=== PATIENT | male | born 1975 | race Caucasian/White ===

== ENCOUNTER 2021-12-06 06:16 | Day surgery (SDC) | payer BC ==
[~2021-12-06] VITALS: Ht 170.2 cm; Wt 102.1 kg
[~2021-12-06 06:16] MED LIST: BUPROPION XL150 MG PO
[2021-12-06] MEDS ORDERED: TYLENOL EXTRA500 MG PO (06:38)
[2021-12-06] MEDS ORDERED: IBUPROFEN600 MG PO (06:38)
--- NOTE | 2021-12-06 08:31 | NUR ---
12/06/21 0831 MildredMary 0818-PATIENT ARRIVED TO PACU ON 3L NC RR EVEN. PATIENT AROUSES TO VERBAL STIMULI OPENING EYES DENIES PAIN OR NAUSEA. PATIENT ORIENTED TO PACU. IVF INFUSING. PATIENT DOZES BACK TO SLEEP. 0830-PATIENT SLEEPING RR EVEN 3L NC RR EVEN PLACED ON RA 98%. STOP BANG SCORE OF 4 PLAN TO SEND SLEEP APNEA HANDOUT HOME AND FORM TO .
--- NOTE | 2021-12-06 09:50 | OR ---
[facility] [address], [place] [address] Signed DATE OF OPERATION: 12/06/2021 SURGEON: Ash Kimble MD PREOPERATIVE DIAGNOSES: 1. Distal esophageal stricture. 2. Prior left thoracotomy age 2 for esophageal surgery. POSTOPERATIVE DIAGNOSES: 1. Mild to moderate diffuse gastritis. 2. Probable healed pyloric bulb/duodenal ulcer. 3. Question proximal antral gastric diverticulum versus healed ulcer. 4. A small hiatal hernia. 5. GE junction at 42 cm. 6. Distal esophageal stricture at 38 cm plus or minus linear ulcer. 7. 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 PROCEDURES: 1. EGD with CLOtest and biopsies of the pyloric bulb antrum, GE junction, and stricture. 2. 45 Cymraes Savory dilation. ESTIMATED BLOOD LOSS: Minimal. INDICATIONS: Leo is a 46-year-old gentleman who was asked to see me for distal esophageal dysphagia. He points to the lower 1/3rd of his sternum. He had esophageal surgery at the age of 2 in [place], [place]. There was a left thoracotomy incision. He certainly could have had esophageal atresia and/or hiatal hernia repaired. It could be that he has had a fundoplication as well. He said he has had distal esophageal dysphagia basically his whole life. At some point, someone told him he might need stretch. He said sometimes he has to vomit the food back up. He said trying to drink food on top of the food only makes it worse. In the office, we had reviewed this in detail. I gave him brochure on acid reflux and hiatal hernias. We had discussed the upper endoscopy with dilation in detail. He understands there is risk to the procedure including, but not limited to gas bloating, crampy abdominal pain, bleeding, perforation requiring surgery, and missed diagnosis. We also send him for a barium swallow in mid October 2021. I reviewed that with him today prior to the procedure. He does have a proximal posterior pharyngeal bar which narrows the lumen around 30% to 40%. However, he never complains of that and it does not delay the swallow during his barium test. His esophageal motility appears to Electronically Signed By: ASH KIMBLE MD 12/06/21 0950 PATIENT NAME: LEO STEWART OPERATIVE REPORT DATE OF : 71 REPORT #: [id number] PHYSICIAN: ASH KIMBLE MD PCP: TEODORA LI REPORT IS CONFIDENTIAL AND NOT TO BE RELEASED WITHOUT AUTHORIZATION [facility] [address], [place] [address] Signed be normal. He clearly has a small hiatal hernia. Of course just above that, in his distal esophagus it is narrowed with a decrease in the luminal diameter of around 60%. The stricture is about a cm in diameter cranial to caudal. There is some nodular indentation on the left side which may represent some scarring from his surgery and he did reflux during the Valsalva maneuvers. I had reviewed all this with Leo in detail. He had expressed understanding and wished to proceed with upper endoscopy and dilation. He understands he might need additional dilations in the future. PROCEDURE NOTE: Leo was taken into our endoscopy suite and placed in a supine semi-recumbent position. He was given a total of 8 mg of Versed and 100 mcg of fentanyl to cover the case. The posterior oropharynx was anesthetized with lidocaine spray. A bite block was utilized for the case. The adult gastroscope was introduced and advanced under direct visualization of the camera down to his stricture at 38 cm. Multiple pictures were taken for photodocumentation. Fortunately our gastroscope went through fairly readily and out into the stomach and into the duodenum itself. The duodenum was quite healthy. In the pyloric bulb, he may have had an ulcer on the side heal over. We took pictures of that and biopsy on the edge of that as well. He appears to have some mild diffuse erythematous changes in the stomach. We went ahead and took a biopsy of the antrum for CLOtest as well as pathologic review. It appears that the CLOtest may be changing color already. In his proximal antrum, he has indentation. It does not appear to be an actual gastric diverticulum. It is always possible it is a healed ulcer, but it seems unlikely. Not sure if that is a postsurgical change, maybe he had a gastrostomy tube at some point in the past. I will have to check his abdominal wall to see if he had a gastrostomy tube incision. It appears that his entire stomach is intact. I retroflexed the scope and he clearly has a small hiatal hernia with some of the cardia being drawn up into his hiatal hernia. I cannot see any evidence that he has a fundoplication. The scope was then withdrawn up through the area of the GE junction, which was compliant without stricture. He has mild disruption to his Z-line with some irritation in that area. We had taken a biopsy at the Z-line as well. The Z-line is about 42-43 cm from the incisors and as we brought the camera back up the esophagus of course we visualized his strictured area. He may have some Reilly's esophagus actually above the stricture. On the one side, there may have been a linear ulcer. He also appears to have some postsurgical changes off to that side as well. It is a little difficult to appreciate on the photographs. The middle and upper esophagus were unremarkable. After this, we passed a wire out into the stomach. We used our 45-Cymraes Savory dilator and we passed that over the wire and we felt the resistance right about 38-40 cm and we were able to pass that through the stricture up to about 55 cm. The wire and the dilator had been withdrawn. The bite block was replaced and the adult gastroscope was reintroduced. We can see what probably was a linear break in the mucosa on the stricture. Hemostasis was excellent. We decided not to dilate that any further today. We will await his biopsies and add Prilosec to his regimen. After this, he was taken into recovery room in stable Electronically Signed By: ASH KIMBLE MD 12/06/21 0950 PATIENT NAME: LEO STEWART OPERATIVE REPORT DATE OF : 71 REPORT #: [id number] PHYSICIAN: ASH KIMBLE MD PCP: TEODORA LI REPORT IS CONFIDENTIAL AND NOT TO BE RELEASED WITHOUT AUTHORIZATION [facility] [address], [place] [address] Signed condition. RECOMMENDATIONS: Leo will follow up in my office in 7 to 14 days to review his results. He will likely need additional dilations. We will write for Prilosec 20 mg p.o. daily at this point. The CLOtest is likely going to be positive. Ash Kimble MD ALB/JERSONL /[id number] cc: MD Teodora Perez PA Copies: ASH KIMBLE MD, LINDA PA ~ Electronically Signed By: ASH KIMBLE MD 12/06/21 0950 PATIENT NAME: LEO STEWART OPERATIVE REPORT DATE OF : 71 REPORT #: [id number] PHYSICIAN: ASH KIMBLE MD PCP: TEODORA LI REPORT IS CONFIDENTIAL AND NOT TO BE RELEASED WITHOUT AUTHORIZATION
--- NOTE | 2021-12-07 15:08 | PATH ---
[facility] [address], [place] [address] Signed SPECIMEN(S): A DUODENAL BULB BIOPSY SPECIMEN(S): B ANTRUM/PYLORUS BIOPSY SPECIMEN(S): C GE JUNCTION BIOPSY SPECIMEN(S): D DISTAL ESOPHAGEAL BIOPSY SPECIMEN SOURCE: A. DUODENAL BULB BIOPSY B. ANTRUM/PYLORUS BIOPSY C. GE JUNCTION BIOPSY D. DISTAL ESOPHAGEAL BIOPSY CLINICAL HISTORY: Esophagogastroduodenoscopy with possible dilation. Dysphagia. Postop: Distal esophageal stricture, small hiatal hernia, mild gastritis. FINAL PATHOLOGIC DIAGNOSIS: A. Duodenal bulb, biopsy: - Duodenal mucosa with gastric surface cell metaplasia and Petra's gland hyperplasia, consistent with peptic duodenitis. - Negative for increased intraepithelial lymphocytes. - Negative for dysplasia or malignancy. B. Stomach, antrum/pylorus, biopsy: - Antral mucosa with chronic, active gastritis. - Positive for Helicobacter organisms on HE stain. - Negative for dysplasia or malignancy. C. Gastroesophageal junction, biopsy: - Squamous mucosa with changes consistent with reflux esophagitis. - Negative for intestinal metaplasia, dysplasia or malignancy. D. Esophagus, distal, biopsy: - Squamous mucosa with intestinal metaplasia (see Comment). - Negative for dysplasia or malignancy. COMMENT: Regarding specimen D: The findings are compatible with Reilly's esophagus in the correct clinical setting. A PAS/D to evaluate for fungal organisms is pending and will be reported in an addendum. NAL:[id number]:[id number] MICROSCOPIC EXAMINATION: Histologic sections of all submitted blocks are examined by light microscopy. These findings, together with the gross examination, support the pathologic PATIENT NAME: LEO STEWART PATHOLOGY DATE OF : 71 REPORT #: [id number] PHYSICIAN: AHSAN HANDLEY PCP: CHRIS LI REPORT IS CONFIDENTIAL AND NOT TO BE RELEASED WITHOUT AUTHORIZATION [facility] [address], [place] [address] Signed diagnosis. GROSS DESCRIPTION: Four specimens are received in four containers, labeled "BE." A. The specimen, labeled "BE, 1," and designated on the requisition "duodenal bulb," is received in formalin and consists of one jo soft tissue fragment that measures 0.3 cm in greatest dimension. The specimen is entirely submitted in cassette (A1). B. The specimen, labeled "BE, 2," and designated on the requisition "antrum/pylorus," is received in formalin and consists of one jo soft tissue fragment that measures 0.3 cm in greatest dimension. The specimen is entirely submitted in cassette (B1). C. The specimen, labeled "BE, 3," and designated on the requisition "GE junction," is received in formalin and consists of one jo soft tissue fragment that measures 0.4 cm in greatest dimension. The specimen is entirely submitted in cassette (C1). D. The specimen, labeled "BE, 4," and designated on the requisition "distal esophagus," is received in formalin and consists of one jo soft tissue fragment that measures 0.3 cm in greatest dimension. The specimen is entirely submitted in cassette (D1). AT (under the direct supervision of a pathologist) The Gross Description was prepared using a voice recognition system. The report was reviewed for accuracy; however, sound-alike word errors, addition and/or deletions may occur. If there is any question about this report, please contact Client Services. PERFORMING LABORATORY: The technical component was performed by [facility], [address] [place] [id number] (Banquet Kitchen Supervisor: Cecilia Simpson MD; CLIA# [id number]). Professional interpretation was performed by [facility], [address] [facility] [place] [address] (CLIA# [id number]). Diagnostician: Rylie Landers MD Pathologist Electronically Signed 12/07/2021 Copies: PATIENT NAME: LEO STEWART PATHOLOGY DATE OF : 71 REPORT #: [id number] PHYSICIAN: AHSAN PATHOLOGY PCP: CHRIS LI REPORT IS CONFIDENTIAL AND NOT TO BE RELEASED WITHOUT AUTHORIZATION [facility] [address] [facility] [place], [place] [address] Signed ~ PATIENT NAME: LEO STEWART PATHOLOGY DATE OF : 71 REPORT #: [id number] PHYSICIAN: AHSAN HANDLEY PCP: CHRIS LI REPORT IS CONFIDENTIAL AND NOT TO BE RELEASED WITHOUT AUTHORIZATION
== END 2021-12-06 09:07 | disposition home or self-care (01) ==
LOC: DS 06:16 → OPS 06:16
PROVIDERS: ATTEND Colon & Rectal Surgery
PROC: 0DB78ZX Excision of Stomach, Pylorus, Via Natural or Artificial Opening Endoscopic, Diagnostic (ICD-10-PCS; 2021-12-06)
PROC: 0D748ZZ Dilation of Esophagogastric Junction, Via Natural or Artificial Opening Endoscopic (ICD-10-PCS; 2021-12-06)
PROC: 0DB48ZX Excision of Esophagogastric Junction, Via Natural or Artificial Opening Endoscopic, Diagnostic (ICD-10-PCS; principal; 2021-12-06 07:30)
DX: K29.70 Gastritis, unspecified, without bleeding (principal); K44.9 Diaphragmatic hernia without obstruction or gangrene; K22.2 Esophageal obstruction; I10 Essential (primary) hypertension; E66.9 Obesity, unspecified; F17.210 Nicotine dependence, cigarettes, uncomplicated; A04.8 Other specified bacterial intestinal infections
CPT/HCPCS: 87077; J2250; J3010; J7121

== ENCOUNTER 2024-08-26 07:15 | Day surgery (SDC) | payer BC ==
[~2024-08-26] VITALS: Ht 170.2 cm; Wt 115.7 kg
[~2024-08-26 07:15] MED LIST changes: +FLOMAX0.4 MG PO; +IBLOOD GLUCOSE TEST STRIP 1 EA TEST VI PRN; +IBUPROFEN600 MG PO; +LACTATED RINGER'S 1,000 ML IV SCH; +LIDOCAINE HCL 1% 5 ML SDV INJ ONE; +MIDAZOLAM HCL 5 MG/5 ML VIAL IV PRN; +PRILOSEC OTC20 MG PO; +TRAZODONE HCL100 MG PO; +TYLENOL EXTRA500 MG PO; +fentaNYL citrate 100 MCG/2 ML VIAL IV PRN
--- NOTE | 2024-08-26 07:51 | NUR ---
VISITED DURING SPIRITUAL CARE ROUNDS. PT IN OVERALL GOOD SPIRITS, EXPRESSED TRUST, CONFIDENCE IN CARE. COPY CHIEF PROVIDED SUPPORTIVE PRESENCE, HOSPITALITY, PRAYER, FACILITATED INTERACTION WITH THERAPY ANIMAL. PT EXPRESSED GRATITUDE.
[2024-08-26 07:56] VITALS: BP 131/76
--- NOTE | 2024-08-26 08:13 | NUR ---
DENIES ANY NEEDS. TO CALL EX FOR RIDE HOME.
[2024-08-26] MEDS ORDERED: fentaNYL citrate 100 MCG/2 ML VIAL ONE (09:20)
[2024-08-26] MEDS ORDERED: MIDAZOLAM HCL 5 MG/5 ML VIAL ONE (09:21)
--- NOTE | 2024-08-26 10:11 | NUR ---
08/26/24 Amy1 Marbin Sena 1004: PT ARRIVED TO PACU VIA STRETCHER. PT ARROUSABLE TO STIMULI AT THIS TIME. PT ON RA AT THIS TIME. PT ABDOMEN SOFT NON DISTENDED.
[2024-08-26 10:30] VITALS: BP 122/67
--- NOTE | 2024-08-27 07:34 | OR ---
[facility] [address] [place], [place] [address] Signed DATE OF OPERATION: 08/26/2024 SURGEON: Ash Kimble MD PREOPERATIVE DIAGNOSIS: Screening. POSTOPERATIVE DIAGNOSES: 1. Minimal sigmoid diverticulosis. 2. 4 mm polyp at 62 cm in left colon. 3. 4 mm polyp at 35 cm in left colon. 4. 4 mm polyp at 18 cm in distal sigmoid colon. 5. 4 mm polyp at 10 cm in the rectum. 6. Minimal internal hemorrhoids. PROCEDURE: Colonoscopy with hot biopsy. ESTIMATED BLOOD LOSS: None. INDICATIONS: Leo is a 49-year-old gentleman, asked to see me for his initial screening colonoscopy. I had helped him with upper endoscopy back in 2021. He was born with esophageal atresia. He had his gastrostomy tube and they tried to dilate the stricture over a wire. Eventually, he underwent a left thoracotomy to have his esophagus reanastomose. I had dilated him up to 45-Cypriot. He said he is much better now. However, he has never had a colonoscopy. He tells me his mother and his previous girlfriend both had colonoscopies. There is no family history of colon cancer or polyps. He has no lower GI complaints. In the office, I gave Leo a pamphlet on colonoscopy. We had compared colonoscopy to the upper endoscopies. He understands there is risk including, but not limited to gas bloating, crampy abdominal pain, bleeding, perforation requiring surgery, and missed diagnosis. We also reviewed the written instructions for the bowel prep line by line. He understands the need for IV conscious sedation. He understands an adult person has to take him home afterwards. He had expressed understanding and wished to proceed. PROCEDURE IN DETAIL: Leo was taken into our endoscopy suite and placed in the left lateral decubitus position. He was given IV sedation with 6 mg of Versed and 100 mcg of fentanyl to cover Electronically Signed By: ASH KIMBLE MD 08/27/24 0734 PATIENT NAME: LEO STEWART OPERATIVE REPORT DATE OF : 71 REPORT #: [id number] PHYSICIAN: ASH KIMBLE MD PCP: TEODORA LI REPORT IS CONFIDENTIAL AND NOT TO BE RELEASED WITHOUT AUTHORIZATION [facility] [address] [place], [place] [address] Signed the case. A digital rectal exam was performed. No external hemorrhoids. Good sphincter tone. Leo is a large man I could just touch the bottom of his prostate gland. It is indurated. There were no masses otherwise. The adult colonoscope was introduced and advanced under direct visualization of the camera without difficulty. His prep was good. We could easily see the appendiceal orifice and the ileocecal valve. The scope was slowly withdrawn. The above-mentioned polyps were easily removed with the help of hot biopsy forceps. He does have some diverticula in the sigmoid colon. They are average in size, few in number and scattered about. Once in the rectum, the scope was retroflexed and he has minimal internal hemorrhoid tissue. After this, the gas was suctioned out and the colonoscope removed. Leo tolerated the procedure quite well. RECOMMENDATIONS: I will see Leo back in my office in 7 to 14 days to review his results. Ash Kimble MD ALB/MODL /[id number] cc: MD Teodora Perez PA Copies: ASH KIMBLE MD, LINDA PA ~ Electronically Signed By: ASH KIMBLE MD 08/27/24 0734 PATIENT NAME: LEO STEWART OPERATIVE REPORT DATE OF : 71 REPORT #: [id number] PHYSICIAN: ASH KIMBLE MD PCP: TEODORA LI REPORT IS CONFIDENTIAL AND NOT TO BE RELEASED WITHOUT AUTHORIZATION
--- NOTE | 2024-08-28 16:24 | PATH ---
[facility] [address] [place], [place] [address] Signed SPECIMEN(S): A DESCENDING POLYP AT 62 CM SPECIMEN(S): B COLON POLYP AT 35 CM SPECIMEN(S): C SIGMOID POLYP AT 18 CM SPECIMEN(S): D RECTAL POLYP AT 10 CM SPECIMEN SOURCE: A. DESCENDING POLYP AT 62 CM B. COLON POLYP AT 35 CM C. SIGMOID POLYP AT 18 CM D. RECTAL POLYP AT 10 CM CLINICAL HISTORY: Screening FINAL PATHOLOGIC DIAGNOSIS: A. Descending colon polyp at 62 cm: - Polypoid fragment of benign colonic mucosa. - No colitis or neoplasm identified. B. Colon polyp at 35 cm: - Hyperplastic polyp. C. Sigmoid polyp at 18 cm: - Polypoid fragment of benign colonic mucosa. - No colitis or neoplasm identified. D. Rectal polyp at 10 cm: - Polypoid fragment of benign colonic mucosa. - No colitis or neoplasm identified. [facility] MICROSCOPIC EXAMINATION: Histologic sections of all submitted blocks are examined by light microscopy. These findings, together with the gross examination, support the pathologic diagnosis. GROSS DESCRIPTION: A. The specimen, labeled and designated "Trejo, descending polyp at 62 cm," is received in formalin and consists of one jo soft tissue fragment, 0.3 cm. Entirely submitted in (A1). B. The specimen, labeled and designated "Neil, colon polyp at 35 cm," is received in formalin and consists of three jo soft tissue fragments, ranging from 0.1-0.2 cm. Entirely submitted in (B1). C. The specimen, labeled and designated "Trejo, distal sigmoid polyp at 18 PATIENT NAME: LEO TREJO PATHOLOGY DATE OF : 71 REPORT #: [id number] PHYSICIAN: AHSAN HANDLEY PCP: CHRIS LI REPORT IS CONFIDENTIAL AND NOT TO BE RELEASED WITHOUT AUTHORIZATION [facility] [address] [place], [place] [address] Signed cm," is received in formalin and consists of one jo soft tissue fragment, 0.2 cm. Entirely submitted in (C1). D. The specimen, labeled and designated "Neil, rectal polyp at 10 cm," is received in formalin and consists of one jo soft tissue fragment, 0.3 cm. Entirely submitted in (D1). VB (under the direct supervision of a pathologist) The Gross Description was prepared using a voice recognition system. The report was reviewed for accuracy; however, sound-alike word errors, addition and/or deletions may occur. If there is any question about this report, please contact Client Services. ADDITIONAL NOTES: Immunohistochemical and/or in situ hybridization studies if performed in this case included appropriate positive controls that reacted as expected. This test was developed and its performance characteristics determined by [facility]. It has not been cleared or approved by the U.S. Food and Drug Administration. The FDA has determined that such clearance or approval is not necessary. This test is used for clinical purposes. It should not be regarded as investigational or for research. [facility] is certified under the Clinical Laboratory Improvement Amendments of 1988 (CLIA) as qualified to perform high complexity clinical laboratory testing. PERFORMING LABORATORY: Technical component was performed by [facility], [address] [place] [id number] (CLIA# [id number]). Professional interpretation was performed by [facility], [address] [place], [place] [id number] (CLIA#: [id number]). Diagnostician: Heath Nieves MD Pathologist Electronically Signed 08/28/2024 Copies: ~ PATIENT NAME: LEO TREJO PATHOLOGY DATE OF : 71 REPORT #: [id number] PHYSICIAN: AHSAN HANDLEY PCP: CHRIS LI REPORT IS CONFIDENTIAL AND NOT TO BE RELEASED WITHOUT AUTHORIZATION
== END 2024-08-26 10:40 | disposition home or self-care (01) ==
LOC: DS 07:15
PROVIDERS: ATTEND Colon & Rectal Surgery
PROC: 0DBN8ZX Excision of Sigmoid Colon, Via Natural or Artificial Opening Endoscopic, Diagnostic (ICD-10-PCS; 2024-08-26)
PROC: 0DBP8ZX Excision of Rectum, Via Natural or Artificial Opening Endoscopic, Diagnostic (ICD-10-PCS; 2024-08-26)
PROC: 0DBG8ZX Excision of Left Large Intestine, Via Natural or Artificial Opening Endoscopic, Diagnostic (ICD-10-PCS; principal; 2024-08-26 09:35)
DX: Z12.11 Encounter for screening for malignant neoplasm of colon (principal); K63.5 Polyp of colon; K62.1 Rectal polyp; K57.30 Diverticulosis of large intestine without perforation or abscess without bleeding; K64.8 Other hemorrhoids; G47.33 Obstructive sleep apnea (adult) (pediatric); E66.9 Obesity, unspecified; Z68.39 Body mass index [BMI] 39.0-39.9, adult; Z79.899 Other long term (current) drug therapy; Z87.891 Personal history of nicotine dependence; Z99.89 Dependence on other enabling machines and devices
CPT/HCPCS: 99153; G0500; J2250; J3010; J7121